=== PATIENT | female | born 1965 | race Caucasian/White ===

== ENCOUNTER 2024-07-02 14:09 | Outpatient (CLI) | payer BC | END 2024-07-02 14:10 | disposition home or self-care (01) | LOC: CSHMRI 14:09 | PROVIDERS: ATTEND Internal Medicine | DX: R42 Dizziness and giddiness (principal); M75.111 Incomplete rotator cuff tear or rupture of right shoulder, not specified as traumatic; S43.431A Superior glenoid labrum lesion of right shoulder, initial encounter | CPT/HCPCS: 93880 ==